=== PATIENT | female | born 2005 | race Caucasian/White ===

== ENCOUNTER 2025-02-21 06:40 | Inpatient (IN) | payer OTHER, SELFPAY ==
[2025-02-21] VITALS (60 sets, daily range): BP systolic 77–176; BP diastolic 58–104; PULSE 79–136; RESP 14–20; TEMP 36.4–37.1; O2SAT 91–99; BMI 38.6
[2025-02-21] MEDS: Lactated Ringers 1,000 ML 999 ML IV (06:52)
[2025-02-21 07:13] LABS: Hematocrit 39.3 % (37-47); Hemoglobin 13.8 g/dL (12.0-15.0); Immature Granulocytes Count 0.090 X10^3/uL (0.0-0.0); Mean Corp Hgb Conc 35.1 g/dL (32-36); Mean Corpuscular Volume 88.9 fL (81-99); Mean Platelet Vol. 11.3 fl (6.2-12.0); NRBC Flagged by Analyzer 0 % (0-5); Platelet Count 185 K/mm3 (150-450); RBC Distribution Width CV 12.6 % (11.6-14.6); RBC Distribution Width SD 41.7 fl (35.1-43.9); Red Blood Count 4.42 M/mm3 (4.2-5.4); White Blood Count 17.1 K/mm3 (4.4-11.0)
[2025-02-21] MEDS: Penicillin G Pot 5,000,000 UNITS in 0.9% Normal Saline (100mL MB+) 100 ML 150 UNITS IV (07:37)
[2025-02-21] MEDS: DiphenhydrAMINE 50 MG/ML Syringe IV (07:37)
[2025-02-21] MEDS: Lactated Ringers 1,000 ML 200 ML IV (07:53)
[2025-02-21] MEDS: fentaNYL-bupivacaine (epidural) 100 ML BAG EPIDURAL (07:56)
[2025-02-21 08:12] LABS: Syphilis Antibodies Nonreactive (Nonreactive)
[2025-02-21] MEDS: Oxytocin 15 Units/NS 250ml 15 UNITS/250 ML IV.SOLN 2 UNITS IV (09:14)
[2025-02-21 10:08] LABS: Hepatitis C Antibody Nonreactive (Nonreactive)
[2025-02-21 10:27] LABS: AST(SGOT) 23 U/L (<=31); Alanine Aminotransfer ALT/SGPT 14 U/L (<=34); Albumin, Serum 3.6 g/dL (3.5-5.0); Alkaline Phosphatase 152 U/L (35-104); Anion Gap 17 (5-15); BUN 9 mg/dL (4-19); BUN/Creat Ratio 13.6 RATIO (10-20); Calcium,Total 9.7 mg/dL (7.6-11.0); Carbon Dioxide 17.0 mmol/L (21.0-32.0); Chloride 100 mmol/L (98-108); Estimated Creatinine Clearance 163.01 ml/min (50-250); Globulin 3.0 g/dL (2.2-4.2); Glucose 114 mg/dL (70-99); HIV Nonreactive (Nonreactive); Potassium 4.1 mmol/L (3.3-5.1)
--- NOTE | 2025-02-21 11:00 | HP.PCM.OB_ITS ---
HPI - General General Date of Admission: 02/21/25 HPI Narrative SHANNON LANDIN, is a 19 F who presents in active labor from the [facility] she had been pushing for an hour and a half with a binding printer and requested transfer of care to our center due to maternal exhaustion and and requesting an epidural was made and upon presentation here was found to be 8 cm dilated with cervical swelling. She denies any complications with her other than anxiety that has been treated with medication. Maternal Data Information KRISTAN Calculator Estimated Delivery Date Method Current WG Current Estimate 02/10/25 Manual 41w 5d PFSH [facility] Medical History (Updated 02/22/25 @ 00:[address] Tonya Acosta MD) Anxiety Home Medications ?Medication ?Instructions ?Recorded ?Last Taken ?Type mirtazapine 30 mg tablet (Remeron) 30 mg PO DAILY depr ession and 02/21/25 Unknown History anxiety vit no.95-ferrous 1 tab PO DAILY Unknown History fumarate 28 mg-folic acid 800 mcg tablet () sertraline 25 mg tablet (Zoloft) 200 mg PO DAILY depre ssion 02/21/25 Unknown History Allergy/AdvReac Type Severity Reaction Status Date / Time No Known Allergies Allergy Verified 02/21/25 07:20 Family History no significant family his Surgical History no surgical history Social History Smoking Status: Never smoker History Elective abortions Hx Para 0 Spontaneous abortions Hx # Term Pregnancies Ectopic pregnancies Hx # Pregnancies Multiple births # of living children NST FHR Rate Baby A Baseline: 140 Variability:: Moderate Accelerations:: 15 x 15 Decelerations:: None NST Reactive:: Yes FHR Category:: Category I Uterine Activity:: q 5 to 7 minutes ROS Constitutional Constitutional: Reports systems reviewed and no addt'l complaints, except as documented ENT HEENT: Reports systems reviewed and no addt'l complaints, except as documented Cardiovascular Cardiovascular: Reports systems reviewed and no addt'l complaints, except as documented Respiratory/Chest Respiratory/Chest: Reports systems reviewed and no addt'l complaints, except as documented Gastrointestinal Gastrointestinal: Reports systems reviewed and no addt'l complaints, except as documented and nausea; Denies abdominal pain Genitourinary Genitourinary: Reports systems reviewed and no addt'l complaints, except as documented, contractions Details: present and frequency (regular ) and movement Details: present Musculoskeletal Musculoskeletal: Reports systems reviewed and no addt'l complaints, except as documented Integumentary Integumentary: Reports as per HPI Neurologic Neurologic: Reports systems reviewed and no addt'l complaints, except as documented Endocrine Endocrinology: Reports systems reviewed and no addt'l complaints, except as documented Vital Signs Vital Signs Vital Signs: 02/21/25 06:49 02/21/25 06:49 02/21/25 06:49 Temperature 97.9 F Temperature Source Temporal Pulse Rate Respiratory Rate 16 Blood Pressure BP Systolic BP Diastolic Pulse Ox 02/21/25 07:02 02/21/25 07:02 02/21/25 07:29 Temperature Temperature Source Pulse Rate 111 H Respiratory Rate Blood Pressure 158/74 H 149/88 H BP Systolic 158 149 BP Diastolic 74 88 Pulse Ox 02/21/25 07:29 02/21/25 07:29 02/21/25 07:34 Temperature Temperature Source Pulse Rate 114 H 104 H Respiratory Rate Blood Pressure BP Systolic BP Diastolic Pulse Ox 97 02/21/25 07:34 02/21/25 07:35 02/21/25 07:35 Temperature Temperature Source Pulse Rate 104 H Respiratory Rate Blood Pressure 159/90 H BP Systolic 159 BP Diastolic 90 Pulse Ox 95 02/21/25 07:35 02/21/25 07:39 02/21/25 07:39 Temperature Temperature Source Pulse Rate 124 H Respiratory Rate Blood Pressure BP Systolic BP Diastolic Pulse Ox 94 94 02/21/25 07:41 02/21/25 07:41 02/21/25 07:41 Temperature Temperature Source Pulse Rate 136 H Respiratory Rate Blood Pressure 176/104 H BP Systolic 176 BP Diastolic 104 Pulse Ox 94 02/21/25 07:44 02/21/25 07:44 02/21/25 07:46 Temperature Temperature Source Pulse Rate 128 H Respiratory Rate Blood Pressure 166/99 H BP Systolic 166 BP Diastolic 99 Pulse Ox 97 02/21/25 07:46 02/21/25 07:49 02/21/25 07:49 Temperature Temperature Source Pulse Rate 131 H 130 H Respiratory Rate Blood Pressure BP Systolic BP Diastolic Pulse Ox 97 02/21/25 07:50 02/21/25 07:50 02/21/25 07:51 Temperature Temperature Source Pulse Rate 120 H Respiratory Rate Blood Pressure 162/100 H BP Systolic 162 BP Diastolic 100 Pulse Ox 91 02/21/25 07:51 02/21/25 07:54 02/21/25 07:54 Temperature Temperature Source Pulse Rate 123 H 116 H Respiratory Rate Blood Pressure BP Systolic BP Diastolic Pulse Ox 99 02/21/25 07:56 02/21/25 07:56 02/21/25 07:59 Temperature Temperature Source Pulse Rate 115 H 108 H Respiratory Rate Blood Pressure 170/89 H BP Systolic 170 BP Diastolic 89 Pulse Ox 02/21/25 07:59 02/21/25 08:00 02/21/25 08:00 Temperature Temperature Source Pulse Rate 108 H Respiratory Rate Blood Pressure 161/80 H BP Systolic 161 BP Diastolic 80 Pulse Ox 98 02/21/25 08:01 02/21/25 08:02 02/21/25 08:02 Temperature Temperature Source Temporal Pulse Rate Respiratory Rate 16 16 Blood Pressure BP Systolic BP Diastolic Pulse Ox 02/21/25 08:02 02/21/25 08:04 02/21/25 08:04 Temperature 97.9 F Temperature Source Pulse Rate 117 H Respiratory Rate Blood Pressure BP Systolic BP Diastolic Pulse Ox 98 02/21/25 08:05 02/21/25 08:05 02/21/25 08:09 Temperature Temperature Source Pulse Rate 121 H Respiratory Rate Blood Pressure 140/68 H 140/69 H BP Systolic 140 140 BP Diastolic 68 69 Pulse Ox 02/21/25 08:09 02/21/25 08:09 02/21/25 08:09 Temperature Temperature Source Pulse Rate 104 H Respiratory Rate 16 Blood Pressure BP Systolic BP Diastolic Pulse Ox 98 02/21/25 08:14 02/21/25 08:14 02/21/25 08:16 Temperature Temperature Source Pulse Rate 114 H Respiratory Rate Blood Pressure 131/65 H BP Systolic 131 BP Diastolic 65 Pulse Ox 98 02/21/25 08:16 02/21/25 08:19 02/21/25 08:19 Temperature Temperature Source Pulse Rate 108 H 105 H Respiratory Rate Blood Pressure 133/68 H BP Systolic 133 BP Diastolic 68 Pulse Ox 02/21/25 08:19 02/21/25 08:24 02/21/25 08:24 Temperature Temperature Source Pulse Rate 106 H Respiratory Rate Blood Pressure BP Systolic BP Diastolic Pulse Ox 98 98 02/21/25 08:25 02/21/25 08:25 02/21/25 08:25 Temperature Temperature Source Pulse Rate 107 H Respiratory Rate 16 Blood Pressure 142/73 H BP Systolic 142 BP Diastolic 73 Pulse Ox 02/21/25 08:28 02/21/25 08:28 02/21/25 08:30 Temperature Temperature Source Pulse Rate 103 H Respiratory Rate Blood Pressure 137/67 H 128/66 H BP Systolic 137 128 BP Diastolic 67 66 Pulse Ox 02/21/25 08:30 02/21/25 08:31 02/21/25 08:31 Temperature Temperature Source Pulse Rate 104 H 106 H Respiratory Rate Blood Pressure BP Systolic BP Diastolic Pulse Ox 97 02/21/25 08:31 02/21/25 08:36 02/21/25 08:36 Temperature Temperature Source Pulse Rate 97 Respiratory Rate 16 Blood Pressure BP Systolic BP Diastolic Pulse Ox 95 02/21/25 08:37 02/21/25 08:37 02/21/25 08:39 Temperature Temperature Source Pulse Rate 106 H Respiratory Rate Blood Pressure 140/71 H 146/69 H BP Systolic 140 146 BP Diastolic 71 69 Pulse Ox 02/21/25 08:39 02/21/25 08:39 02/21/25 08:41 Temperature Temperature Source Pulse Rate 102 H 102 H Respiratory Rate 16 Blood Pressure BP Systolic BP Diastolic Pulse Ox 02/21/25 08:41 02/21/25 08:45 02/21/25 08:45 Temperature Temperature Source Pulse Rate 107 H Respiratory Rate Blood Pressure 144/71 H BP Systolic 144 BP Diastolic 71 Pulse Ox 98 02/21/25 08:46 02/21/25 08:46 02/21/25 08:49 Temperature Temperature Source Pulse Rate 104 H Respiratory Rate Blood Pressure 136/67 H BP Systolic 136 BP Diastolic 67 Pulse Ox 97 02/21/25 08:49 02/21/25 08:50 02/21/25 08:51 Temperature Temperature Source Pulse Rate 102 H 107 H Respiratory Rate 16 Blood Pressure BP Systolic BP Diastolic Pulse Ox 02/21/25 08:51 02/21/25 08:56 02/21/25 08:56 Temperature Temperature Source Pulse Rate 116 H Respiratory Rate Blood Pressure 136/74 H BP Systolic 136 BP Diastolic 74 Pulse Ox 97 02/21/25 08:56 02/21/25 08:59 02/21/25 08:59 Temperature Temperature Source Pulse Rate 105 H Respiratory Rate Blood Pressure 132/73 H BP Systolic 132 BP Diastolic 73 Pulse Ox 97 02/21/25 09:01 02/21/25 09:01 02/21/25 09:02 Temperature Temperature Source Pulse Rate 107 H Respiratory Rate Blood Pressure 128/70 H BP Systolic 128 BP Diastolic 70 Pulse Ox 97 02/21/25 09:02 02/21/25 09:02 02/21/25 09:02 Temperature Temperature Source Temporal Pulse Rate 97 Respiratory Rate 16 Blood Pressure BP Systolic BP Diastolic Pulse Ox 02/21/25 09:02 Temperature 97.6 F L Temperature Source Pulse Rate Respiratory Rate Blood Pressure BP Systolic BP Diastolic Pulse Ox Weight Weight: 225 lb Body Mass Index (BMI) 38.6 Physical Exam Const alert, oriented x3 and healthy appearing Constitutional Narrative: uncomfortable with contractions HEENT normocephalic and moist oral mucous membranes Head and Scalp: atraumatic Neck full ROM, no lymphadenopathy, supple and thyroid normal General: trachea midline Thyroid: thyroid normal Lymph Lymphatic: no lymphadenopathy noted Chest inspection of chest normal Resp normal respiratory effort Cardio regular rate GI soft to palpation and non-tender GI Narrative: gravid Inspection: gravid external exam normal Bimanual Exam - Vag & Uterus: uterus non-tender Manual OB Exam: estimated gestational size appropriate, presentation cephalic, dilated, effaced and station Extremity normal to inspection General Extremity: Negative for edema Skin no rashes or lesions noted Neuro deep tendon reflexes 2+ bilaterally Motor Exam: strength 5/5 throughout and clonus absent Psych mental status grossly normal Labs Labs Labs: Blood Type A POSITIVE Antibody Screen NEGATIVE Hct 39.3 % (37-47) Hgb 13.8 g/dL (12.0-15.0) Syphilis Total Ab Nonreactive (Nonreactive) Hepatitis C Antibody Nonreactive (Nonreactive) HIV 1&2 Antibody Nonreactive (Nonreactive) Assessment & Plan (1) Active labor at term: PLAN: Plan Postdates with protraction of labor cervical swelling will attempt to give Pitocin augmentation after comfortable with epidural.
[2025-02-21] MEDS: Cefazolin 2 GM in 0.9% Normal Saline (100mL Bag) 100 ML IV (11:22)
[2025-02-21] MEDS: Lactated Ringers 1,000 ML 1000 ML IV (11:22)
[2025-02-21] MEDS: Cefazolin 1 GM/5 ML Vial 2 GM IV (11:22)
[2025-02-21] MEDS: fentaNYL 100 MCG/2 ML Ampul EPIDURAL (11:23)
[2025-02-21] MEDS: Lidocaine 2% (5ml sdv) 5 ML VIAL.MPF 10 ML EPIDURAL (11:23)
[2025-02-21] MEDS: Azithromycin 500 MG in 0.9% Normal Saline (250mL Bag) 250 ML 250 MG IV (11:40)
[2025-02-21] MEDS: Azithromycin 500 MG Vial (SNAP) IV (11:42)
[2025-02-21] MEDS: morphine PF (epidural) 5 MG/10 ML Vial 3 MG IV (11:56)
[2025-02-21] MEDS: Oxytocin 15 Units/NS 250ml 15 UNITS/250 ML IV.SOLN 83 UNITS IV (12:40)
--- NOTE | 2025-02-21 12:40 | PCM.PN.BLA ---
Progress Note Late entry category 2 tracing patient still 8 cm recurrent late decelerations cervical swelling present significant caput position changes fluid bolus given decision made for primary low-transverse patient agrees to proceed with MARÍA ELENA
--- NOTE | 2025-02-21 12:41 | OP.PCM_ITS ---
Assessment & Plan (1) Category II heart rate tracing during labor and delivery: (2) Arrest of dilation, delivered, current hospitalization: (3) Active labor at term: (4) delivery delivered: COMMENT: LTCS 41 [facility] transfer cat II tracing 8 cm AOD Maternal Data Information KRISTAN Calculator Estimated Delivery Date Method Current WG Current Estimate 02/10/25 Manual 41w 5d Operative Report (OB) Procedure Details Date of Procedure: 02/21/25 Procedure Start Time: 11:36 Pre-Operative Diagnosis: Failure to Progress (8 cm) and Distress Post-Operative Diagnosis: Same as Pre-operative diagnosis (op) Classification: MARÍA ELENA Type of Anesthesia: Epidural Special Medications: none Antibiotic Given: Ancef 2 grams IV x1 and Zithromax 500 mg/5 mL X1 Drain: Mendoza to straight drain Estimated Blood Loss: 800 Fluids Replaced: crystalloid Findings Description of surgery: Mendoza catheter was placed. The patient was placed in the dorsal supine position with leftward tilt. Patient was prepped and draped in the normal sterile fashion. Pfannenstiel skin incision was made with the scalpel and carried through to the underlying layer of fascia with the scalpel. Fascia was nicked in the midline and the incision extended laterally. The rectus bellies were dissected off superiorly and inferiorly with out complication both sharply and bluntly. The peritoneum was entered digitally. The incision was stretched and a low transverse uterine incision was made with the scalpel. The infant's head was delivered atraumatically followed by the anterior and posterior shoulders without complication the rest of the delivered. The cord was clamped and cut and the infant was handed off to awaiting nurse. The placenta was delivered spontaneously immediately following and was noted to be intact and have a three-vessel cord. The uterus was exteriorized cleared of all clots and debris, and the incision was closed in a double layer closure using #1 Monocryl. The ovaries and fallopian tubes were noted to be within normal limits. The uterus was returned to the maternal abdomen and gutters were cleared of all clots and debris. The peritoneum was closed with 3-0 Monocryl in a running fashion. Gloves were changed prior to fascial closure. Fascia was closed with 0 PDS in a running fashion. Subcutaneous tissue was copiously irrigated and the skin was closed with 3-0 Monocryl in a subcuticular fashion. Mepilex dressing was applied without complication. Patient was taken to recovery in stable condition. It was discussed with the patient that based on the clinical information obtained during this encounter, combined with her history, at this time I would recommend vaginal or cesareans for future deliveries if further pregnancies are desired. Surgical findings: OP presentation Placental Delivery Description: Spontaneous Specimen collected: Yes Description of specimen(s) removed: Placenta Cord Vessel Description: 3 Vessels Delayed Cord Clamping: Yes Engine Repairer Service plastic technician: Yes Dumper Bulk System: Yaneli Mir Tasks completed by list of first job ideas: Opening & closing, Retracting and Other (Assisting with delivery of the infant) Additional career services assistant?: No Complications Complications: No Admit VTE Documentation VTE Present on Admission: No VTE Mechan Device Prophylaxis: SCD's Procedures Urinary/Genital [id number]: [id number] Delivery [facility]
[2025-02-21] MEDS: Ketorolac 30 MG/ML Syringe IV ×2 (13:36→20:06)
--- NOTE | 2025-02-21 15:36 | PLAC_PTH ---
PATIENT: SHANNON LANDIN LOC: [facility] U#:[id number] AGE/SX: 19/F ROOM: WP010 RE02/21/[address]: Dr. Tonya Acosta MD : 2005 BED: 1 DIS: 02/26/2025 SPEC #: [id number] RECD: 02/21/25 16:23 STATUS: ELBA REBethel #: [id number] ISAI: 02/21/25 15:[address]: Tonya Acosta DEPT: SURGICAL PATHOLOGY RECD BY: Reuben Santiago ENTERED: 02/22/25 10:25 SP TYPE: PLACENTA OTHR DR: Dr. Jose Ramon Mathew, DO Tissues: A - Placenta, NOS Procedures: Surgery Specimen Level V HEADER OPERATION: Primary section PRE-OP DIAGNOSIS: Provider requested TISSUE SUBMITTED: A- Placenta MICROSCOPIC DIAGNOSIS A. Placenta, (gestation age of 40 weeks /5 days), section: * Marginally inserted membranes without active inflammation * Eccentrically inserted and trivascular umbilical cord without active inflammation and with vascular redundancies, consistent with false knots * Mature (third trimester) placenta, consistent with the stated gestational age, and without active inflammation MICROSCOPIC DESCRIPTION Slides are reviewed. GROSS DESCRIPTION A. Received in formalin labeled with the patient's name and date of is a 617 g, 20.5 x 20.4 x 2.7 cm ovoid placental disc. The minimal membranes are engel-pink and translucent, inserting marginally. The attached, trivascular umbilical cord measures 25.1 in length by 0.9-1.6 in diameter and inserts eccentrically, 6.0 cm from the disc edge; there are multiple, possible false knots. The surface is blue and glistening with approximately 50% detached amnion. The maternal surface is dark red-brown with a focally torn and frayed appearance, when reapproximated the maternal surface appears near complete. Sections have dark red, congested parenchyma with focal fibrin and hemorrhage (<20%). Cargo Handler sections are submitted as follows: A1: Membrane rollA2: Umbilical cordA3: PlacentaA4: Placenta SC 02/22/2025 CPT:51412
[2025-02-21 16:22] LABS: Pathology Specimen OB SEE PATHOLOGY REPORT
[2025-02-21] MEDS: 0.9% Saline Lock 10 ML Syringe IV (20:06)
--- NOTE | 2025-02-22 00:48 | DCINST_ITS ---
Discharge Instructions DC O2, CPAP, BIPAP needs Home O2 Discharge instructions: No Dressing / Incision Discharge Activity: May Not Drive (for 2 weeks or while taking narcotic pain medications.), May Shower and May Take a Tub Bath (in 7 days) May shower in (days): 0 May resume sexual activity in: 4-6 weeks Weight Bearing Status: Full weight bearing Lifting Restrictions: 20 pounds Dressing / Incision Call your doctor if your incision/area has: Continuous Slow Oozing, Sudden Increased Bleeding, Increased Pain/ Swelling, Increased Redness and Foul Smelling Discharge Call your doctor if you observe: Fever of 101 or Higher and Using more than 1 pad per hour (for 2 hours) Suture Line Care: Avoid Pulling/Pushing and Avoid Pinching/Bending Cleanse incision/area with: Soap & Water and Keep Dressing Clean & Dry Follow Up Care Please Follow Up With: Tonya Acosta MD When: Call [phone] to make an appointment for an incision check in 1-2 weeks. Test Results: Test results from this visit will be discussed in further detail at your follow- up appointment, if applicable. Discharge Plan Admission Admit Date/Time: 02/21/25 06:40 Attending Provider: Tonya Acosta Discharge Orders/Prescriptions Prescriptions: New oxycodone-acetaminophen [Percocet] 5-325 mg tablet 1 tab PO Q4H PRN (Reason: pain) 7 Days Qty: 20 0RF naproxen 500 mg tablet 500 mg PO BID PRN PRN (Reason: Pain) Qty: 30 1RF No Action PNV no.95-ferrous fumarate-FA [] 28 mg iron- 800 mcg tablet 1 tab PO DAILY sertraline [Zoloft] 25 mg tablet 200 mg PO DAILY mirtazapine [Remeron] 30 mg tablet 30 mg PO DAILY Disposition Disposition (needs filled in before D/C Order can be placed): Home, Self Care
[2025-02-22] MEDS: Ketorolac 30 MG/ML Syringe IV ×2 (02:07→07:49)
[2025-02-22] MEDS: 0.9% Saline Lock 10 ML Syringe IV ×2 (02:08→07:49)
[2025-02-22 03:30] VITALS: BP 127/75; PULSE 77; RESP 16; O2SAT 97
[2025-02-22 06:01] LABS: Hematocrit 34.1 % (37-47); Hemoglobin 11.8 g/dL (12.0-15.0); Mean Corp Hgb Conc 34.6 g/dL (32-36); Mean Corpuscular Volume 90.5 fL (81-99); Mean Platelet Vol. 11.2 fl (6.2-12.0); Platelet Count 154 K/mm3 (150-450); RBC Distribution Width CV 12.9 % (11.6-14.6); RBC Distribution Width SD 42.7 fl (35.1-43.9); Red Blood Count 3.77 M/mm3 (4.2-5.4); White Blood Count 14.2 K/mm3 (4.4-11.0)
[2025-02-22 07:30] VITALS: BP 130/86; PULSE 78; RESP 16; TEMP 36.4; O2SAT 97
[2025-02-22] MEDS: Senna/Docusate Sodium 1 Tablet PO (10:57)
--- NOTE | 2025-02-22 13:25 | PN.OBGYN_ITS ---
Subjective Subjective Patient doing well without complaints. Tolerating PO. Ambulating and voiding without difficulty. feeding well. Denies chest pain, shortness of breath, calf pain/swelling, fevers, chills, lightheadedness. Objective Data Objective Data Vital Signs: Vital Signs Temp Pulse Resp BP Pulse Ox O2 Del Method 97.6 F L 78 16 130/86 H 97 Room Air 02/22/25 07:30 02/22/25 07:30 02/22/25 07:30 02/22/25 07:30 02/22/25 07:30 02/22/25 07:30 Oxygen Delivery Method Room Air Weight: 225 lb Body Mass Index (BMI) 38.6 Intake & Output: Intake and Output for Last 24 Hours 02/20/25 02/21/25 02/22/25 23:59 23:59 23:59 Intake Total 2465.00 / 2465.00 Output Total 2200 / 2200 1100 / 1100 Balance 265.00 / 265.00 -1100 / -1100 Lab / Micro Data 02/22/25 05:48 02/21/25 09:08 Labs: Laboratory Results - last 24 hr 02/22/25 05:48: WBC 14.2 H, RBC 3.77 L, Hgb 11.8 L, Hct 34.1 L, MCV 90.5, MCH 31.3, MCHC 34.6, RDW Std Deviation 42.7, RDW Coeff of Vicky 12.9, Plt Count 154, MPV 11.2 ROS Constitutional Constitutional: Reports systems reviewed and no addt'l complaints, except as documented Cardiovascular Cardiovascular: Reports systems reviewed and no addt'l complaints, except as documented Respiratory/Chest Respiratory/Chest: Reports systems reviewed and no addt'l complaints, except as documented Gastrointestinal Gastrointestinal: Reports systems reviewed and no addt'l complaints, except as documented Physical Exam Const alert, oriented x3 and no apparent distress HEENT Head and Scalp: atraumatic Resp normal respiratory effort GI soft to palpation and non-tender Inspection: incision intact, healing well and drainage (none) Bimanual Exam - Vag & Uterus: uterus non-tender Uterus Palpation: uterus fundus firm (below Umbilicus) Assessment & Plan (1) delivery delivered: COMMENT: LT 41 [facility] transfer cat II tracing 8 cm AOD PLAN: Plan s/p LTCS PPD # 1 1. routine post care 2. breast feeding- support given 3. rh positive 4. rubella immune
[2025-02-22 13:45] VITALS: BP 127/75; PULSE 83; RESP 16; TEMP 36.7; O2SAT 97
[2025-02-22 20:23] VITALS: BP 128/71; PULSE 75; RESP 16; O2SAT 96
[2025-02-23 01:34] VITALS: BP 136/71; PULSE 63; RESP 16; TEMP 36.7; O2SAT 99
[2025-02-23 07:55] VITALS: BP 140/75; PULSE 80; RESP 16; TEMP 36.5; O2SAT 97
--- NOTE | 2025-02-23 10:08 | PN.OBGYN_ITS ---
Subjective Subjective Patient doing well without complaints. Tolerating PO. Ambulating and voiding without difficulty. Feeding well. Denies chest pain, shortness of breath, calf pain/swelling, fevers, chills, lightheadedness. Objective Data Objective Data Vital Signs: Vital Signs Temp Pulse Resp BP Pulse Ox O2 Del Method 98.1 F 63 16 136/71 H 99 Room Air 02/23/25 01:34 02/23/25 01:34 02/23/25 01:34 02/23/25 01:34 02/23/25 01:34 02/23/25 01:34 Oxygen Delivery Method Room Air Weight: 225 lb Body Mass Index (BMI) 38.6 Intake & Output: Intake and Output for Last 24 Hours 02/21/25 02/22/25 02/23/25 23:59 23:59 23:59 Intake Total 2465.00 / 2465.00 13.5 / 13.5 2 / 2 Output Total 2200 / 2200 2100 / 2100 Balance 265.00 / 265.00 -2086.5 / -2086.5 2 / 2 Lab / Micro Data 02/22/25 05:48 02/21/25 09:08 Physical Exam Const alert, oriented x3 and no apparent distress HEENT Head and Scalp: atraumatic Resp normal respiratory effort GI soft to palpation and non-tender Inspection: incision intact, healing well and drainage (none) Bimanual Exam - Vag & Uterus: uterus non-tender Uterus Palpation: uterus fundus firm (below Umbilicus) Assessment & Plan (1) delivery delivered: COMMENT: LTCS [address] [facility] transfer cat II tracing 8 cm AOD PLAN: s/p LTCS PPD # 2 1. routine post care 2. breast feeding- support given 3. rh positive 4. rubella immune 5. d/c to hotel status this evening
--- NOTE | 2025-02-23 10:09 | DS.PCM_ITS ---
Providers Date of Admission: 02/21/25 Primary Care Physician: Dr. Jose Ramon Mathew DO Reason For Visit: CSECTION/CSECTION DELIVERY Diagnosis Discharge Diagnosis (1) delivery delivered: Status: Acute Code(s): O82 - Encounter for delivery without indication Plan: s/p LTCS PPD # 2 1. routine post care 2. breast feeding- support given 3. rh positive 4. rubella immune 5. d/c to hotel status this evening Medications at Discharge Home Medications mirtazapine 30 mg tablet (Remeron) 30 mg PO DAILY depression and anxiety 02/21/25 vit no.95-ferrous fumarate 28 mg-folic acid 800 mcg tablet () 1 tab PO DAILY 02/21/25 sertraline 25 mg tablet (Zoloft) 200 mg PO DAILY depression 02/21/25 naproxen 500 mg tablet 500 mg PO BID PRN PRN Pain #30 tabs 02/22/25 oxycodone-acetaminophen 5 mg-325 mg tablet (Percocet) 1 tab PO Q4H PRN pain 7 days #20 tabs 02/22/25 Hospital Course Operations section Summary of Care Provided Hospital Course: LTCS at 41 weeks transfer from [facility] arrest of dilation s/p cs. standard pp course. Physical Exam Const alert, oriented x3 and no apparent distress HEENT Head and Scalp: atraumatic Resp normal respiratory effort GI soft to palpation and non-tender Inspection: incision intact, healing well and drainage (none) Bimanual Exam - Vag & Uterus: uterus non-tender Uterus Palpation: uterus fundus firm (below Umbilicus) Weight / BMI Weight Weight: 225 lb Body Mass Index (BMI) 38.6 ABG / Lab / Microbiology Data 02/22/25 05:48 02/21/25 09:08 D/C Instructions May shower in (days): 0 May resume sexual activity in: 4-6 weeks Weight Bearing Status: Full weight bearing Call your doctor if your incision/area has: Continuous Slow Oozing, Sudden Increased Bleeding, Increased Pain/ Swelling, Increased Redness and Foul Smelling Discharge Call your doctor if you observe: Fever of 101 or Higher and Using more than 1 pad per hour (for 2 hours) Suture Line Care: Avoid Pulling/Pushing and Avoid Pinching/Bending Cleanse incision/area with: Soap & Water and Keep Dressing Clean & Dry DC O2, CPAP, BIPAP Needs Home O2 Discharge instructions: No Please Follow Up With: Tonya Acosta MD When: Call [phone] to make an appointment for an incision check in 1-2 weeks. Meaningful Use Info Meaningful Use Meaningful Use Diagnoses (Choose all that apply): None applicable Discharge Plan Admission Admit Date/Time: 02/21/25 06:40 Attending Provider: Tonya Acosta Primary Care Provider: Jose Ramon Mathew Discharge Orders/Prescriptions Prescriptions: New oxycodone-acetaminophen [Percocet] 5-325 mg tablet 1 tab PO Q4H PRN (Reason: pain) 7 Days Qty: 20 0RF naproxen 500 mg tablet 500 mg PO BID PRN PRN (Reason: Pain) Qty: 30 1RF No Action PNV no.95-ferrous fumarate-FA [] 28 mg iron- 800 mcg tablet 1 tab PO DAILY sertraline [Zoloft] 25 mg tablet 200 mg PO DAILY mirtazapine [Remeron] 30 mg tablet 30 mg PO DAILY Disposition Disposition (needs filled in before D/C Order can be placed): Home, Self Care
[2025-02-23] MEDS: Senna/Docusate Sodium 1 Tablet PO (10:26)
--- NOTE | 2025-02-23 13:47 | CASEMGMT ---
Social Work Assessment Labor and Delivery Unit Patient Address: [address] [place] [address]. [place] [address] Phone number: [phone] Date of Referral: 02/22/2025 Time of Referral: 15:11 Referred By: Tonya Acosta Date of Intervention: 02/23/2025 Time of Intervention: 13:47 Reason for Referral: Anxiety of DOT to SCN History obtained from: Mother of baby (MOB), Father of baby (FOB) and medical record review. ? Household composition: JOEY RODRÍGUEZ (Bassem, age 22) and their daughter, Brandie, born on 02/21/25. Patient's parent/guardian status: MOB and FOB have been together for almost 4 years and for almost 1 year.?? MOB denied any previous or current issues of domestic violence and described a positive relationship with the FOB. MOB and FOB both denied having any other children. Medical History: : 1, Para, now 1. MOB received care through [facility] and it appears as though visits were regular. Apgars: 2 and 7 and 7 and 7 and 1, 5 and 10 minutes. Weight: 7lbs, 15oz. ?Gear Machine Operator: Dr. pedrito Mathew. Educational Status: MOB and FOB denied any issues with reading, writing or learning comprehension. MOB and FOB both attended school through the 8th grade. Financial Status: MOB and FOB reported that their income is sufficient to meet the needs of their family at this time. MOB is going to be a [id number] and the FOB is currently employed full-time. Infant Supplies: MOB and FOB reported they have the supplies they need for baby at this time including but not limited to: Car seat, crib, diapers, bottles, breast and clothing. MARCOS reported she is in the process of getting a manual breast pump. Childcare/Caregiver(s): MARCOS reported that as a [facility], she will be the primary caregiver of . Transportation: Both MOB and FOB reported they have reliable transportation to get baby to and from all medical appointments. MOB and FOB denied any issues/barriers to transportation at this time. Programs/Agencies Involved: MARCOS is currently involved with [facility] where she has a Psychiatrist who see?s MOM once every 3 months and monitors/prescribes MOB medications to treat MOB?s anxiety. Children Services/Legal Issues: MOB and FOB denied any previous or current legal involvement. Behavioral Health Issues: None reported/denied. ?? Mental Health History: MOB has anxiety, is on medication and MOB described medication as being effective at this time. FOB denied any history of MH. ? Substance Use History:?? MOB and FOB denied any previous or current drug and/or alcohol abuse. ? Family History: MOB reported that anxiety and OCD run on both the maternal and paternal side of the family. FOB denied any family history of mental health and/or drug alcohol abuse. ? Drug Screens: None obtained for the MOB or during this admission. Family/Social Stressors:?? Denied. Support Systems: MOB identified her biggest support as her mother and the FOB?s mother. Depression/Shaken Baby/Safe Sleeping: Steamfitter provided verbal and written education on PPD, increased risk factors for PPD, Safe Sleeping and Shaken Baby.? MOB and FOB both verbalized an understanding.??? ASSESSMENT: MOB and FOB provided consent to social work visit. Upon arrival, the MOB was sitting upright in the hospital bed and the FOB was standing nearby. [place] was not in the room. MOB and FOB were both verbally engaged and cooperative. Steamfitter observed positive interaction between the MOB and FOB. ?At the end of the assessment, Steamfitter requested to speak with the MOB alone, which she and the FOB were both agreeable to. MOB reported feeling safe in her home and denied any previous or current domestic violence, unmanaged mental health issues either with herself or with the FOB, and also denied any concerns with any drug or alcohol abuse either with herself or with the FOB as well as any unmanaged mental health concerns. Safe Plan of Care for infant related to substance use: N/A PLAN: For MOB and baby to be discharged when medically ready. No other services requested or indicated. Natasha Valencia, NIPPLE THREADER, CHIEF OPERATOR HYDROFORMER
[2025-02-23 13:50] VITALS: BP 126/76; PULSE 80; RESP 16; TEMP 36.5; O2SAT 97
[2025-02-23 20:11] VITALS: BP 158/87; PULSE 82; RESP 16; TEMP 36.6; O2SAT 98
[2025-02-24 02:58] VITALS: BP 149/93; PULSE 66; RESP 16; TEMP 36.7; O2SAT 97
[2025-02-24 07:45] VITALS: BP 141/85; PULSE 76; RESP 16; TEMP 36.6; O2SAT 98
--- NOTE | 2025-02-24 08:50 | NURSING ---
Noted elevated blood pressures and discussed this with Ion MCDERMOTT, new orders received to draw pre E labs. Labs drawn and sent to lab.
[2025-02-24 08:57] LABS: Hematocrit 36.5 % (37-47); Hemoglobin 12.7 g/dL (12.0-15.0); Mean Corp Hgb Conc 34.8 g/dL (32-36); Mean Corpuscular Volume 90.8 fL (81-99); Mean Platelet Vol. 11.0 fl (6.2-12.0); Platelet Count 185 K/mm3 (150-450); RBC Distribution Width CV 12.7 % (11.6-14.6); RBC Distribution Width SD 42.5 fl (35.1-43.9); Red Blood Count 4.02 M/mm3 (4.2-5.4); White Blood Count 9.9 K/mm3 (4.4-11.0)
[2025-02-24 09:22] LABS: AST(SGOT) 38 U/L (<=31); Alanine Aminotransfer ALT/SGPT 35 U/L (<=34); Estimated Creatinine Clearance 204.56 ml/min (50-250)
[2025-02-24 09:42] LABS: Uric Acid 5.0 mg/dL (2.6-6.0)
[2025-02-24 09:59] LABS: Partial Thromboplast Time 26.6 Seconds (24.1-36.2)
--- NOTE | 2025-02-24 10:43 | PCM.PN.CNM ---
Subjective Subjective Patient doing well without complaints. Tolerating PO. Ambulating and voiding without difficulty. Feeding well. Denies chest pain, shortness of breath, calf pain/swelling, fevers, chills, lightheadedness.denies headaches, visual changes, ruq pain. Objective Data Objective Data Vital Signs: Vital Signs Temp Pulse Resp BP Pulse Ox O2 Del Method 97.9 F 76 16 141/85 H 98 Room Air 02/24/25 07:45 02/24/25 07:45 02/24/25 07:45 02/24/25 07:45 02/24/25 07:45 02/24/25 07:45 Oxygen Delivery Method Room Air Weight: 225 lb Body Mass Index (BMI) 38.6 Intake & Output: Intake and Output for Last 24 Hours 02/22/25 02/23/25 02/24/25 23:59 23:59 23:59 Intake Total 13.5 / 13.5 2 / 2 Output Total 2100 / 2100 Balance -2086.5 / -2086.5 2 2 Lab / Micro Data 02/24/25 08:40 02/24/25 08:40 Labs: Laboratory Results - last 24 hr 02/24/25 08:40: WBC 9.9, RBC 4.02 L, Hgb 12.7, Hct 36.5 L, MCV 90.8, MCH 31.6, MCHC 34.8, RDW Std Deviation 42.5, RDW Coeff of Vicky 12.7, Plt Count 185, MPV 11.0, APTT 26.6, Creatinine 0.51 L, Estim Creat Clear Calc 204.56, Est GFR (MDRD) Non-Af 137, Uric Acid 5.0, AST 38 H, ALT 35 Physical Exam Const alert, oriented x3 and no apparent distress HEENT Head and Scalp: atraumatic Resp normal respiratory effort GI soft to palpation and non-tender Inspection: incision intact, healing well and drainage (none) Bimanual Exam - Vag & Uterus: uterus non-tender Uterus Palpation: uterus fundus firm (below Umbilicus) Assessment & Plan (1) Pre-eclampsia, : COMMENT: increased lft. increased bp. cw JV agrees with diagnosis. procardia XL 30mg bid CNM Communc: communicated with dr. monsalve at 1029 increased AST, and BP overnight 140-150s/80-90s, denies headaches/ruq pain or visual changes. however with increased labs and bp. to start on procardia xl 30mg and observe BP overnight and remain admitted. (2) delivery delivered: COMMENT: LTCS [facility] transfer cat II tracing 8 cm AOD PLAN: Plan s/p LTCS PPD # 3 1. routine post care 2. breast feeding- support given 3. rh positive 4. rubella immune
[2025-02-24] MEDS: NIFEdipine 30 MG Tablet PO ×2 (11:19→22:32)
[2025-02-24] MEDS: Senna/Docusate Sodium 1 Tablet PO (11:19)
[2025-02-24 12:00] VITALS: BP 142/84; PULSE 86; RESP 16; TEMP 36.2; O2SAT 97
[2025-02-24 16:00] VITALS: BP 138/84; PULSE 88; RESP 16; TEMP 36.8; O2SAT 98
[2025-02-24 20:14] VITALS: BP 148/93; PULSE 93; RESP 16; TEMP 36.8; O2SAT 97
[2025-02-25 02:47] VITALS: BP 142/88; PULSE 72; RESP 16; O2SAT 98
[2025-02-25 08:25] VITALS: BP 134/83; PULSE 72; RESP 16; TEMP 36.3; O2SAT 99
[2025-02-25] MEDS: NIFEdipine 30 MG Tablet PO ×2 (09:52→21:27)
[2025-02-25] MEDS: Senna/Docusate Sodium 1 Tablet PO (09:52)
--- NOTE | 2025-02-25 11:03 | PCM.PN.OB ---
Subjective Subjective Patient doing well without complaints. Tolerating PO. Ambulating and voiding without difficulty. Feeding well. Denies chest pain, shortness of breath, calf pain/swelling, fevers, chills, lightheadedness. labs repeated today. requesting to go home, will wait for lab results and additional BPs to be taken before D/C Objective Data Objective Data Vital Signs: Vital Signs Temp Pulse Resp BP Pulse Ox O2 Del Method 97.4 F L 72 16 134/83 H 99 Room Air 02/25/25 08:25 02/25/25 08:25 02/25/25 08:25 02/25/25 08:25 02/25/25 08:25 02/25/25 08:25 Oxygen Delivery Method Room Air Weight: 225 lb Body Mass Index (BMI) 38.6 Intake & Output: Intake and Output for Last 24 Hours 02/23/25 02/24/25 02/25/25 23:59 23:59 23:59 Intake Total 2 / 2 Balance 2 / 2 Lab / Micro Data 02/24/25 08:40 02/24/25 08:40 ROS Constitutional Constitutional: Reports systems reviewed and no addt'l complaints, except as documented; Denies anorexia or headache(s) Cardiovascular Cardiovascular: Reports systems reviewed and no addt'l complaints, except as documented; Denies dizziness, dyspnea, nausea or tachypnea Respiratory/Chest Respiratory/Chest: Reports systems reviewed and no addt'l complaints, except as documented; Denies cough, dyspnea, shortness of breath at rest or tachypnea Gastrointestinal Gastrointestinal: Reports systems reviewed and no addt'l complaints, except as documented; Denies abdominal pain, constipation or nausea Genitourinary Genitourinary: Reports systems reviewed and no addt'l complaints, except as documented; Denies burning urination, difficulty urinating, dysuria, urinary frequency or urinary incontinence Musculoskeletal Musculoskeletal: Reports systems reviewed and no addt'l complaints, except as documented Integumentary Integumentary: Reports systems reviewed and no addt'l complaints, except as documented Neurologic Neurologic: Reports systems reviewed and no addt'l complaints, except as documented; Denies abnormal speech, dizziness or headache(s) Psychiatric Psychiatric: Reports systems reviewed and no addt'l complaints, except as documented Endocrine Endocrinology: Reports systems reviewed and no addt'l complaints, except as documented Hematologic/Lymphatic Hematologic/Lymphatic: Reports systems reviewed and no addt'l complaints, except as documented Physical Exam Const alert, oriented x3 and no apparent distress Neck full ROM Resp normal respiratory effort, normal air movement and no retractions Effort and Inspection: able to speak in complete sentences and symmetric chest movement GI soft to palpation Bladder / Kidney Exam: bladder normal to palpation Uterus Palpation: uterus fundus firm Extremity normal to inspection and full ROM Psych mental status grossly normal, thought process normal and cooperative Assessment & Plan (1) Pre-eclampsia, : COMMENT: increased lft. increased bp. cw JV agrees with diagnosis. procardia XL 30mg bid PLAN: s/p LTCS PPD # 1. routine post care 2. breast feeding- support given 3. rh positive 4. rubella immune repeat labs monitor BPs (2) delivery delivered: COMMENT: LTCS 41 [facility] transfer cat II tracing 8 cm AOD (3) Arrest of dilation, delivered, current hospitalization: (4) Category II heart rate tracing during labor and delivery: (5) Active labor at term: Charges/Coding Multi Select Codes Urinary/Genital Urinary/Genital CPT Codes: No Charge
[2025-02-25 11:04] LABS: Hematocrit 37.1 % (37-47); Hemoglobin 13.1 g/dL (12.0-15.0); Immature Granulocytes Count 0.050 X10^3/uL (0.0-0.0); Mean Corp Hgb Conc 35.3 g/dL (32-36); Mean Corpuscular Volume 89.8 fL (81-99); Mean Platelet Vol. 10.6 fl (6.2-12.0); NRBC Flagged by Analyzer 0 % (0-5); Platelet Count 230 K/mm3 (150-450); RBC Distribution Width CV 12.7 % (11.6-14.6); RBC Distribution Width SD 41.6 fl (35.1-43.9); Red Blood Count 4.13 M/mm3 (4.2-5.4); White Blood Count 11.3 K/mm3 (4.4-11.0)
[2025-02-25 11:30] LABS: AST(SGOT) 39 U/L (<=31); Alanine Aminotransfer ALT/SGPT 55 U/L (<=34); Albumin, Serum 3.5 g/dL (3.5-5.0); Alkaline Phosphatase 110 U/L (35-104); Anion Gap 10 (5-15); BUN 10 mg/dL (4-19); BUN/Creat Ratio 19.7 RATIO (10-20); Calcium,Total 9.4 mg/dL (7.6-11.0); Carbon Dioxide 21.3 mmol/L (21.0-32.0); Chloride 106 mmol/L (98-108); Estimated Creatinine Clearance 204.56 ml/min (50-250); Globulin 2.9 g/dL (2.2-4.2); Glucose 76 mg/dL (70-99); Potassium 4.2 mmol/L (3.3-5.1)
--- NOTE | 2025-02-25 13:19 | PCM.PN.BLA ---
Progress Note pt is walking from nicu to her room. She denies chest pain, shortness of breath, headaches, epigastric pain. Her LFt's have increased from last night. BP is however stable Physical Exam Const alert, oriented x3 and no apparent distress HEENT normocephalic Eyes PERRL Neck full ROM Chest Chest: symmetrical chest wall rise Resp normal respiratory effort GI soft to palpation, non-tender and non-distended; Negative for hepatosplenomegaly no CVA tenderness Extremity normal to inspection General Extremity: Negative for edema Skin no rashes or lesions noted Neuro oriented x3 Psych mental status grossly normal Assessment & Plan Assessment/Plan (1) Pre-eclampsia, : (2) delivery delivered: PLAN: Plan continue close observation, rpt labs tomorrow. patient is asymptomatic despite slight increase in LFT's.
[2025-02-25 14:00] VITALS: BP 138/69; PULSE 90; RESP 16; TEMP 36.8
[2025-02-25 21:24] VITALS: BP 153/83; PULSE 86; RESP 15; O2SAT 97
[2025-02-26 02:46] VITALS: BP 138/92; PULSE 80; RESP 16; O2SAT 98
[2025-02-26 05:34] LABS: Hematocrit 38.5 % (37-47); Hemoglobin 13.3 g/dL (12.0-15.0); Immature Granulocytes Count 0.040 X10^3/uL (0.0-0.0); Mean Corp Hgb Conc 34.5 g/dL (32-36); Mean Corpuscular Volume 90.4 fL (81-99); Mean Platelet Vol. 10.4 fl (6.2-12.0); NRBC Flagged by Analyzer 0 % (0-5); Platelet Count 234 K/mm3 (150-450); RBC Distribution Width CV 12.7 % (11.6-14.6); RBC Distribution Width SD 42.3 fl (35.1-43.9); Red Blood Count 4.26 M/mm3 (4.2-5.4); White Blood Count 11.4 K/mm3 (4.4-11.0)
[2025-02-26 06:17] LABS: AST(SGOT) 28 U/L (<=31); Alanine Aminotransfer ALT/SGPT 44 U/L (<=34); Albumin, Serum 3.5 g/dL (3.5-5.0); Alkaline Phosphatase 106 U/L (35-104); Anion Gap 12 (5-15); BUN 14 mg/dL (4-19); BUN/Creat Ratio 26.1 RATIO (10-20); Calcium,Total 9.4 mg/dL (7.6-11.0); Carbon Dioxide 19.7 mmol/L (21.0-32.0); Chloride 104 mmol/L (98-108); Estimated Creatinine Clearance 200.63 ml/min (50-250); Globulin 2.9 g/dL (2.2-4.2); Glucose 96 mg/dL (70-99); Potassium 3.6 mmol/L (3.3-5.1)
[2025-02-26 08:21] VITALS: BP 139/70; PULSE 94; RESP 16; TEMP 37.1; O2SAT 95
--- NOTE | 2025-02-26 09:03 | PCM.PN.OB ---
Subjective Subjective Patient doing well without complaints. Tolerating PO. Ambulating and voiding without difficulty. feeding well. Denies chest pain, shortness of breath, calf pain/swelling, fevers, chills, lightheadedness. Objective Data Objective Data Vital Signs: Vital Signs Temp Pulse Resp BP Pulse Ox O2 Del Method 98.7 F 94 16 139/70 H 95 Room Air 02/26/25 08:21 02/26/25 08:21 02/26/25 08:21 02/26/25 08:21 02/26/25 08:21 02/26/25 08:21 Oxygen Delivery Method Room Air Weight: 225 lb Body Mass Index (BMI) 38.6 Lab / Micro Data 02/26/25 05:20 02/26/25 05:20 Labs: Laboratory Results - last 24 hr 02/25/25 10:50: WBC 11.3 H, RBC 4.13 L, Hgb 13.1, Hct 37.1, MCV 89.8, MCH 31.7, MCHC 35.3, RDW Std Deviation 41.6, RDW Coeff of Vicky 12.7, Plt Count 230, MPV 10.6, Immature Gran % (Auto) 0.400, Neut % (Auto) 72.1 H, Lymph % (Auto) 16.8 L, [place] % (Auto) 6.5, Eos % (Auto) 3.8, Baso % (Auto) 0.4, Absolute Neuts (auto) 8.1 H, Absolute Lymphs (auto) 1.90, Nucleated RBC % 0, Sodium 138, Potassium 4.2, Chloride 106, Carbon Dioxide 21.3, Anion Gap 10, BUN 10, Creatinine 0.51 L, Estim Creat Clear Calc 204.56, Est GFR (MDRD) Non-Af 137, BUN/Creatinine Ratio 19.7, Glucose 76, Calcium 9.4, Total Bilirubin 0.21, AST 39 H, ALT 55 H, Alkaline Phosphatase 110 H, Total Protein 6.4, Albumin 3.5, Globulin 2.9, Albumin/Globulin Ratio 1.2 02/26/25 05:20: WBC 11.4 H, RBC 4.26, Hgb 13.3, Hct 38.5, MCV 90.4, MCH 31.2, MCHC 34.5, RDW Std Deviation 42.3, RDW Coeff of Vicky 12.7, Plt Count 234, MPV 10.4, Immature Gran % (Auto) 0.400, Neut % (Auto) 71.8 H, Lymph % (Auto) 17.8 L, [place] % (Auto) 6.1, Eos % (Auto) 3.6, Baso % (Auto) 0.3, Absolute Neuts (auto) 8.2 H, Absolute Lymphs (auto) 2.02, Nucleated RBC % 0, Sodium 136, Potassium 3.6, Chloride 104, Carbon Dioxide 19.7 L, Anion Gap 12, BUN 14, Creatinine 0.52 L, Estim Creat Clear Calc 200.63, Est GFR (MDRD) Non-Af 136, BUN/Creatinine Ratio 26.1 H, Glucose 96, Calcium 9.4, Total Bilirubin 0.18, AST 28, ALT 44 H, Alkaline Phosphatase 106 H, Total Protein 6.4, Albumin 3.5, Globulin 2.9, Albumin/Globulin Ratio 1.2 ROS Constitutional Constitutional: Reports systems reviewed and no addt'l complaints, except as documented Cardiovascular Cardiovascular: Reports systems reviewed and no addt'l complaints, except as documented Respiratory/Chest Respiratory/Chest: Reports systems reviewed and no addt'l complaints, except as documented Gastrointestinal Gastrointestinal: Reports systems reviewed and no addt'l complaints, except as documented Physical Exam Const alert, oriented x3 and no apparent distress HEENT Head and Scalp: atraumatic Resp normal respiratory effort GI soft to palpation and non-tender Inspection: incision intact, healing well and drainage (none) Bimanual Exam - Vag & Uterus: uterus non-tender Uterus Palpation: uterus fundus firm (below Umbilicus) Assessment & Plan (1) Pre-eclampsia, : COMMENT: increased lft. increased bp. cw JV agrees with diagnosis. procardia XL 30mg bid. decreasing lfts now, added labetalol. plan to dc home and fu in office repeat bps and labs. (2) delivery delivered: COMMENT: LTCS 41 [address] [facility] transfer cat II tracing 8 cm AOD PLAN: Plan improving bps with addition of labetalol, improving labs. stable for dc to home with precuations and close followup
[2025-02-26] MEDS: NIFEdipine 30 MG Tablet PO (09:55)
[2025-02-26] MEDS: Senna/Docusate Sodium 1 Tablet PO (09:56)
--- NOTE | 2025-02-26 13:08 | NURSING ---
Student charting reviewed by Kamryn rn, instructor
--- NOTE | 2025-03-01 14:05 | NURSING ---
F/up call performed-- no ans, LVM
== END 2025-02-26 10:45 | disposition home or self-care (01) | DRG 788 ==
PROVIDERS: Advanced Practice Midwife; Obstetrics & Gynecology; Registered Nurse; Admitting Provider Obstetrics & Gynecology; PCP Family Medicine; Referring Provider Obstetrics & Gynecology; Visit Provider Obstetrics & Gynecology
DX: O48.0 Post-term pregnancy (principal); O14.95 Unspecified pre-eclampsia, complicating the puerperium; F41.9 Anxiety disorder, unspecified; O75.81 Maternal exhaustion complicating labor and delivery; O99.344 Other mental disorders complicating childbirth; O62.1 Secondary uterine inertia; O76 Abnormality in fetal heart rate and rhythm complicating labor and delivery; Z3A.41 41 weeks gestation of pregnancy; Z37.0 Single live birth; Z79.899 Other long term (current) drug therapy
CPT/HCPCS: 59025; 59050; 80053; 82565; 84450; 84460; 84550; 85025; 85027; 85730; 86703; 86780; 86803; 86850; 86900; 86901; 88307; 99221; A4216; G0378; J2405

== ENCOUNTER → 2025-03-19 | Outpatient (CLI) | payer OTHER, SELFPAY ==
[2025-03-19 13:19] LABS: AST(SGOT) 22 U/L (<=31); Alanine Aminotransfer ALT/SGPT 26 U/L (<=34); Albumin, Serum 4.4 g/dL (3.5-5.0); Alkaline Phosphatase 108 U/L (35-104); Anion Gap 12 (5-15); BUN 10 mg/dL (4-19); BUN/Creat Ratio 15.4 RATIO (10-20); Calcium,Total 9.6 mg/dL (7.6-11.0); Carbon Dioxide 24.3 mmol/L (21.0-32.0); Chloride 103 mmol/L (98-108); Globulin 2.8 g/dL (2.2-4.2); Glucose 102 mg/dL (70-99); Potassium 4.2 mmol/L (3.3-5.1)
== END | disposition home or self-care (01) ==
PROVIDERS: PCP Family Medicine; Referring Provider Nurse Practitioner Family; Visit Provider Nurse Practitioner Family
DX: O14.95 Unspecified pre-eclampsia, complicating the puerperium (principal); Z3A.00 Weeks of gestation of pregnancy not specified
CPT/HCPCS: 36415; 80053

== ENCOUNTER → 2025-04-03 | Outpatient (CLI) | payer OTHER, SELFPAY | END | disposition home or self-care (01) | LOC: LABSPEC 16:37 | PROVIDERS: PCP Family Medicine; Referring Provider Obstetrics & Gynecology; Visit Provider Obstetrics & Gynecology | DX: Z12.4 Encounter for screening for malignant neoplasm of cervix (principal) | CPT/HCPCS: 88175; G0145 ==